=== PATIENT | female | born 1965 | race Caucasian/White ===

== ENCOUNTER → 2021-05-01 | Day surgery (SDC) | payer BC ==
[~2021-05-01] MED LIST: ALLEGRA-D 24 H1 EACH PO; CEFTRIAXONE 1 GM VIAL ONE; DEXAMETHASONE SOD PHOS INJ 4 MG/ML VIAL ONE; FLUOXETINE HCL20 M1 PO; LEVOCETIRIZINE D5 MG PO; LEVOTHYROXINE50 MCG PO; LIDOCAINE HCL 2% LOCAL INJ 5 ML SDV VIAL INJ ONE; ONDANSETRON HCL INJ 2MG/ML 2ML 2 MG/ML VIAL ONE; POVIDONE IODINE 0.05% 0.05 % ML PO ONE; PROPOFOL IV EMULSION 10 MG/ML 20 ML VIAL ONE; SEVOFLURANE INHAL SOLN 250 ML PEN BTL ONE; SODIUM CHLORIDE 0.9% 50ML 50 ML ONE
[2021-05-01 08:35] VITALS: BP 141/76
== END | disposition home or self-care (01) ==
LOC: OR 05:33
PROVIDERS: ATTEND Urology
DX: N20.0 Calculus of kidney (principal); N39.0 Urinary tract infection, site not specified; N20.1 Calculus of ureter; E66.01 Morbid (severe) obesity due to excess calories; Z01.810 Encounter for preprocedural cardiovascular examination; Z01.818 Encounter for other preprocedural examination; Z68.36 Body mass index [BMI] 36.0-36.9, adult
CPT/HCPCS: 50590; 74018; 93005; J0696; J1100; J2001; J2405; J2704

== ENCOUNTER → 2023-04-06 | Day surgery (SDC) | payer BC, OTHER ==
[~2023-04-06] MED LIST changes: +BLACK COHOSH160 MG; -CEFTRIAXONE 1 GM VIAL ONE; +COLON HEALTH; -DEXAMETHASONE SOD PHOS INJ 4 MG/ML VIAL ONE; +LACTATED RINGER'S 1,000 ML ONE; -ONDANSETRON HCL INJ 2MG/ML 2ML 2 MG/ML VIAL ONE; -POVIDONE IODINE 0.05% 0.05 % ML PO ONE; +PROPOFOL IV EMULSION 10 MG/ML 50 ML VIAL IV ONE; -SEVOFLURANE INHAL SOLN 250 ML PEN BTL ONE; -SODIUM CHLORIDE 0.9% 50ML 50 ML ONE; +SUPER B MAXI C0.4 MG; +VITAMIN D; +[UNRECOGNIZED DRUG - OTHER]
[2023-04-06 09:45] VITALS: BP 133/74; PULSE 88; RESP 16; O2SAT 99
== END | disposition home or self-care (01) ==
LOC: OR 08:18
PROVIDERS: ATTEND Internal Medicine Gastroenterology
DX: K20.90 Esophagitis, unspecified without bleeding (principal); K62.1 Rectal polyp; K31.7 Polyp of stomach and duodenum; K29.70 Gastritis, unspecified, without bleeding; K63.89 Other specified diseases of intestine; K64.8 Other hemorrhoids; Z71.3 Dietary counseling and surveillance; E03.9 Hypothyroidism, unspecified; Z01.810 Encounter for preprocedural cardiovascular examination; Z79.899 Other long term (current) drug therapy; Z68.37 Body mass index [BMI] 37.0-37.9, adult; Z87.442 Personal history of urinary calculi
CPT/HCPCS: 43239; 43450; 45380; 93005; C9113; J2001; J2704 ×2; J7121; 45378